=== PATIENT | male | born 1950 ===

== ENCOUNTER 2018-10-16 11:55 | Day surgery (SDC) | payer MEDICARE, BC ==
[~2018-10-16 11:55] MED LIST: ALPR.5; ALPR.5 PO; BACL10; CEFP200 PO; CELE200 PO; CEPH500 PO; CYCL10; Ceftriaxone2 G1 IV; ELIQUIS2.5 MG PO; ESOM20; HYDACE10B; HYDMOR4 PO; LANS30EC; METO100ER PO; METO50 PO; METO50ER PO; MIRT30 PO; MORPHINE; MULVITMINF; ONDA4ODT PO; OXYC10TA19 PO; OXYC30ER PO; OXYC80ER; OXYC80ER PO; Omeprazole20 M1 PO; PENVK500; PRAZ2 PO; PREG75 PO; ROFE25; SUCR1; Synthroid25 MCG PO; TEMA30 PO; TIZA4; TIZA4 PO; WARF5 PO; ZOLP10; ZOLP12.5; [UNRECOGNIZED DRUG - OTHER]
== END 2018-10-16 22:54 | disposition home or self-care (01) ==
LOC: WOUND 11:55
DX: T81.89XA Other complications of procedures, not elsewhere classified, initial encounter (principal); M19.90 Unspecified osteoarthritis, unspecified site; I10 Essential (primary) hypertension; I48.91 Unspecified atrial fibrillation; G89.4 Chronic pain syndrome; D50.9 Iron deficiency anemia, unspecified; M41.9 Scoliosis, unspecified; Z98.84 Bariatric surgery status; Z79.01 Long term (current) use of anticoagulants; Z79.899 Other long term (current) drug therapy
CPT/HCPCS: G0463

== ENCOUNTER 2018-10-23 14:13 | Day surgery (SDC) | payer MEDICARE, BC | END 2018-10-23 22:37 | disposition home or self-care (01) | LOC: WOUND 14:13 | DX: T81.89XA Other complications of procedures, not elsewhere classified, initial encounter (principal); M19.90 Unspecified osteoarthritis, unspecified site ==

== ENCOUNTER 2018-10-25 08:45 | Day surgery (SDC) | payer MEDICARE, BC | END 2018-10-25 22:36 | disposition home or self-care (01) | LOC: WOUND 08:45 | DX: T81.89XA Other complications of procedures, not elsewhere classified, initial encounter (principal); I10 Essential (primary) hypertension; D50.9 Iron deficiency anemia, unspecified; I48.91 Unspecified atrial fibrillation; Z98.84 Bariatric surgery status ==

== ENCOUNTER 2018-10-28 00:15 | Day surgery (SDC) | payer MEDICARE, BC | END 2018-10-28 22:37 | disposition home or self-care (01) | LOC: WOUND 00:15 | DX: T81.89XA Other complications of procedures, not elsewhere classified, initial encounter (principal); I48.91 Unspecified atrial fibrillation; G89.4 Chronic pain syndrome; M41.9 Scoliosis, unspecified; I10 Essential (primary) hypertension; Z98.84 Bariatric surgery status ==

== ENCOUNTER 2018-10-30 14:15 | Day surgery (SDC) | payer MEDICARE, BC | END 2018-10-30 22:42 | disposition home or self-care (01) | LOC: WOUND 14:15 | DX: T85.79XA Infection and inflammatory reaction due to other internal prosthetic devices, implants and grafts, initial encounter (principal); I10 Essential (primary) hypertension; I48.91 Unspecified atrial fibrillation; D50.9 Iron deficiency anemia, unspecified ==

== ENCOUNTER 2018-11-01 14:53 | Day surgery (SDC) | payer MEDICARE, BC | END 2018-11-01 23:02 | disposition home or self-care (01) | LOC: WOUND 14:53 | DX: T81.89XA Other complications of procedures, not elsewhere classified, initial encounter (principal); M19.90 Unspecified osteoarthritis, unspecified site; I48.91 Unspecified atrial fibrillation; G89.4 Chronic pain syndrome; M41.9 Scoliosis, unspecified; D50.9 Iron deficiency anemia, unspecified; I10 Essential (primary) hypertension ==

== ENCOUNTER 2018-11-04 07:43 | Day surgery (SDC) | payer MEDICARE, BC | END 2018-11-04 23:02 | disposition home or self-care (01) | LOC: WOUND 07:43 | DX: T81.89XA Other complications of procedures, not elsewhere classified, initial encounter (principal); I10 Essential (primary) hypertension; I48.91 Unspecified atrial fibrillation; D50.9 Iron deficiency anemia, unspecified; Z98.84 Bariatric surgery status ==

== ENCOUNTER 2018-11-06 14:21 | Day surgery (SDC) | payer MEDICARE, BC | END 2018-11-06 22:39 | disposition home or self-care (01) | LOC: WOUND 14:21 | DX: T81.89XA Other complications of procedures, not elsewhere classified, initial encounter (principal); I48.91 Unspecified atrial fibrillation; M41.9 Scoliosis, unspecified; D50.9 Iron deficiency anemia, unspecified; I10 Essential (primary) hypertension; Z98.84 Bariatric surgery status ==

== ENCOUNTER 2018-11-08 15:04 | Day surgery (SDC) | payer MEDICARE, BC | END 2018-11-08 22:54 | disposition home or self-care (01) | LOC: WOUND 15:04 | DX: T81.89XA Other complications of procedures, not elsewhere classified, initial encounter (principal); S31.109A Unspecified open wound of abdominal wall, unspecified quadrant without penetration into peritoneal cavity, initial encounter; I10 Essential (primary) hypertension; I48.91 Unspecified atrial fibrillation; D50.9 Iron deficiency anemia, unspecified ==

== ENCOUNTER 2018-11-11 07:35 | Day surgery (SDC) | payer MEDICARE, BC | END 2018-11-11 22:38 | disposition home or self-care (01) | LOC: WOUND 07:35 | DX: T81.89XA Other complications of procedures, not elsewhere classified, initial encounter (principal); G89.4 Chronic pain syndrome; M41.9 Scoliosis, unspecified; D50.9 Iron deficiency anemia, unspecified; I10 Essential (primary) hypertension ==

== ENCOUNTER 2018-11-13 14:50 | Day surgery (SDC) | payer MEDICARE, BC ==
--- NOTE | 2018-11-13 16:36 | NUR ---
This student nurse has permission to access patient's information.
== END 2018-11-14 22:39 | disposition home or self-care (01) ==
LOC: WOUND 14:50
DX: T81.89XA Other complications of procedures, not elsewhere classified, initial encounter (principal); S31.109A Unspecified open wound of abdominal wall, unspecified quadrant without penetration into peritoneal cavity, initial encounter; I10 Essential (primary) hypertension; I48.91 Unspecified atrial fibrillation; D50.9 Iron deficiency anemia, unspecified; F41.9 Anxiety disorder, unspecified; Z98.84 Bariatric surgery status

== ENCOUNTER 2018-11-15 15:00 | Day surgery (SDC) | payer MEDICARE, BC | END 2018-11-16 22:39 | disposition home or self-care (01) | LOC: WOUND 15:00 | DX: T81.89XA Other complications of procedures, not elsewhere classified, initial encounter (principal); G89.4 Chronic pain syndrome; M41.9 Scoliosis, unspecified; D50.9 Iron deficiency anemia, unspecified; I10 Essential (primary) hypertension; Z98.84 Bariatric surgery status ==

== ENCOUNTER 2018-11-18 00:13 | Day surgery (SDC) | payer MEDICARE, BC | END 2018-11-18 22:45 | disposition home or self-care (01) | LOC: WOUND 00:13 | DX: T81.89XA Other complications of procedures, not elsewhere classified, initial encounter (principal); I10 Essential (primary) hypertension; I48.91 Unspecified atrial fibrillation; D50.9 Iron deficiency anemia, unspecified; Z98.84 Bariatric surgery status ==

== ENCOUNTER 2018-11-20 00:10 | Day surgery (SDC) | payer MEDICARE, BC | END 2018-11-20 22:39 | disposition home or self-care (01) | LOC: WOUND 00:10 | DX: S31.109A Unspecified open wound of abdominal wall, unspecified quadrant without penetration into peritoneal cavity, initial encounter (principal); I10 Essential (primary) hypertension; I48.91 Unspecified atrial fibrillation; D50.9 Iron deficiency anemia, unspecified; Z98.84 Bariatric surgery status ==

== ENCOUNTER 2018-11-22 00:37 | Day surgery (SDC) | payer MEDICARE, BC | END 2018-11-22 22:45 | disposition home or self-care (01) | LOC: WOUND 00:37 | DX: T81.89XA Other complications of procedures, not elsewhere classified, initial encounter (principal); S31.109A Unspecified open wound of abdominal wall, unspecified quadrant without penetration into peritoneal cavity, initial encounter; I10 Essential (primary) hypertension; I48.91 Unspecified atrial fibrillation; D50.9 Iron deficiency anemia, unspecified; Z98.84 Bariatric surgery status ==

== ENCOUNTER 2018-11-25 08:46 | Day surgery (SDC) | payer MEDICARE, BC | END 2018-11-25 22:36 | disposition home or self-care (01) | LOC: WOUND 08:46 | DX: T81.89XA Other complications of procedures, not elsewhere classified, initial encounter (principal); G89.4 Chronic pain syndrome; M41.9 Scoliosis, unspecified; D50.9 Iron deficiency anemia, unspecified; I10 Essential (primary) hypertension; M19.90 Unspecified osteoarthritis, unspecified site ==

== ENCOUNTER 2018-11-27 15:01 | Day surgery (SDC) | payer MEDICARE, BC | END 2018-11-27 22:42 | disposition home or self-care (01) | LOC: WOUND 15:01 | DX: S31.109A Unspecified open wound of abdominal wall, unspecified quadrant without penetration into peritoneal cavity, initial encounter (principal); I11.0 Hypertensive heart disease with heart failure; I50.9 Heart failure, unspecified; I48.91 Unspecified atrial fibrillation ==

== ENCOUNTER 2018-11-29 14:58 | Day surgery (SDC) | payer MEDICARE, BC | END 2018-11-29 22:42 | disposition home or self-care (01) | LOC: WOUND 14:58 | DX: T81.89XA Other complications of procedures, not elsewhere classified, initial encounter (principal); S31.109A Unspecified open wound of abdominal wall, unspecified quadrant without penetration into peritoneal cavity, initial encounter; I10 Essential (primary) hypertension; I48.91 Unspecified atrial fibrillation; D50.9 Iron deficiency anemia, unspecified ==

== ENCOUNTER 2018-12-02 15:01 | Emergency (ER) | payer MEDICARE, BC ==
[~2018-12-02] VITALS: Ht 165.1 cm; Wt 72.6 kg
== END 2018-12-02 16:17 | disposition home or self-care (01) ==
LOC: ER 15:01
DX: Z48.01 Encounter for change or removal of surgical wound dressing (principal); Z88.8 Allergy status to other drugs, medicaments and biological substances; Z79.899 Other long term (current) drug therapy; Z79.891 Long term (current) use of opiate analgesic; I10 Essential (primary) hypertension; F64.9 Gender identity disorder, unspecified; I48.91 Unspecified atrial fibrillation
CPT/HCPCS: 99282

== ENCOUNTER 2018-12-04 11:22 | Day surgery (SDC) | payer MEDICARE, BC | END 2018-12-04 23:00 | disposition home or self-care (01) | LOC: WOUND 11:22 | DX: S31.109A Unspecified open wound of abdominal wall, unspecified quadrant without penetration into peritoneal cavity, initial encounter (principal); I48.91 Unspecified atrial fibrillation; D50.9 Iron deficiency anemia, unspecified; I10 Essential (primary) hypertension; Z98.84 Bariatric surgery status ==

== ENCOUNTER 2018-12-06 07:44 | Day surgery (SDC) | payer MEDICARE, BC | END 2018-12-06 22:55 | disposition home or self-care (01) | LOC: WOUND 07:44 | DX: T81.89XA Other complications of procedures, not elsewhere classified, initial encounter (principal); S31.109A Unspecified open wound of abdominal wall, unspecified quadrant without penetration into peritoneal cavity, initial encounter; M19.90 Unspecified osteoarthritis, unspecified site ==

== ENCOUNTER 2018-12-09 01:37 | Day surgery (SDC) | payer MEDICARE, BC | END 2018-12-09 22:36 | disposition home or self-care (01) | LOC: WOUND 01:37 | DX: T81.89XA Other complications of procedures, not elsewhere classified, initial encounter (principal); G89.4 Chronic pain syndrome; M41.9 Scoliosis, unspecified; D50.9 Iron deficiency anemia, unspecified; I10 Essential (primary) hypertension; Z98.84 Bariatric surgery status ==

== ENCOUNTER 2018-12-11 00:25 | Day surgery (SDC) | payer MEDICARE, BC | END 2018-12-11 22:44 | disposition home or self-care (01) | LOC: WOUND 00:25 | DX: S31.109A Unspecified open wound of abdominal wall, unspecified quadrant without penetration into peritoneal cavity, initial encounter (principal); I10 Essential (primary) hypertension; I48.91 Unspecified atrial fibrillation; D50.9 Iron deficiency anemia, unspecified; Z98.84 Bariatric surgery status ==

== ENCOUNTER 2018-12-13 10:30 | Day surgery (SDC) | payer MEDICARE, BC | END 2018-12-13 22:44 | disposition home or self-care (01) | LOC: WOUND 10:30 | DX: T81.89XA Other complications of procedures, not elsewhere classified, initial encounter (principal); S31.109A Unspecified open wound of abdominal wall, unspecified quadrant without penetration into peritoneal cavity, initial encounter; F41.9 Anxiety disorder, unspecified | CPT/HCPCS: G0463 ==

== ENCOUNTER 2018-12-16 08:50 | Day surgery (SDC) | payer MEDICARE, BC | END 2018-12-16 22:38 | disposition home or self-care (01) | LOC: WOUND 08:50 | DX: T81.89XA Other complications of procedures, not elsewhere classified, initial encounter (principal); S31.109A Unspecified open wound of abdominal wall, unspecified quadrant without penetration into peritoneal cavity, initial encounter | CPT/HCPCS: G0463 ==

== ENCOUNTER 2018-12-18 07:49 | Day surgery (SDC) | payer MEDICARE, BC | END 2018-12-18 22:55 | disposition home or self-care (01) | LOC: WOUND 07:49 | DX: T81.89XA Other complications of procedures, not elsewhere classified, initial encounter (principal); S31.109A Unspecified open wound of abdominal wall, unspecified quadrant without penetration into peritoneal cavity, initial encounter | CPT/HCPCS: G0463 ==

== ENCOUNTER 2018-12-20 13:40 | Day surgery (SDC) | payer MEDICARE, BC | END 2018-12-20 22:59 | disposition home or self-care (01) | LOC: WOUND 13:40 | DX: T81.89XA Other complications of procedures, not elsewhere classified, initial encounter (principal); S31.109A Unspecified open wound of abdominal wall, unspecified quadrant without penetration into peritoneal cavity, initial encounter; I10 Essential (primary) hypertension; I48.91 Unspecified atrial fibrillation; D50.9 Iron deficiency anemia, unspecified; Z98.84 Bariatric surgery status ==

== ENCOUNTER 2018-12-23 07:45 | Day surgery (SDC) | payer MEDICARE, BC | END 2018-12-23 23:03 | disposition home or self-care (01) | LOC: WOUND 07:45 | DX: T81.89XA Other complications of procedures, not elsewhere classified, initial encounter (principal); M19.90 Unspecified osteoarthritis, unspecified site; G89.4 Chronic pain syndrome; M41.9 Scoliosis, unspecified; I10 Essential (primary) hypertension; Z98.84 Bariatric surgery status ==

== ENCOUNTER 2018-12-25 07:42 | Day surgery (SDC) | payer MEDICARE, BC | END 2018-12-25 22:43 | disposition home or self-care (01) | LOC: WOUND 07:42 | DX: T81.89XA Other complications of procedures, not elsewhere classified, initial encounter (principal); G89.4 Chronic pain syndrome; M41.9 Scoliosis, unspecified; D50.9 Iron deficiency anemia, unspecified; I10 Essential (primary) hypertension; Z98.84 Bariatric surgery status ==

== ENCOUNTER 2018-12-27 16:40 | Day surgery (SDC) | payer MEDICARE, BC | END 2018-12-27 22:39 | disposition home or self-care (01) | LOC: WOUND 16:40 | DX: T81.89XA Other complications of procedures, not elsewhere classified, initial encounter (principal); S31.109A Unspecified open wound of abdominal wall, unspecified quadrant without penetration into peritoneal cavity, initial encounter; I10 Essential (primary) hypertension; I48.91 Unspecified atrial fibrillation; D50.9 Iron deficiency anemia, unspecified; Z98.84 Bariatric surgery status ==

== ENCOUNTER 2018-12-30 11:30 | Day surgery (SDC) | payer MEDICARE, BC | END 2018-12-30 22:37 | disposition home or self-care (01) | LOC: WOUND 11:30 | DX: T81.89XA Other complications of procedures, not elsewhere classified, initial encounter (principal); G89.4 Chronic pain syndrome; M41.9 Scoliosis, unspecified; D50.9 Iron deficiency anemia, unspecified; I10 Essential (primary) hypertension | CPT/HCPCS: G0463 ==

== ENCOUNTER 2019-01-01 07:55 | Day surgery (SDC) | payer MEDICARE, BC | END 2019-01-01 22:58 | disposition home or self-care (01) | LOC: WOUND 07:55 | DX: T81.31XA Disruption of external operation (surgical) wound, not elsewhere classified, initial encounter (principal); S31.109A Unspecified open wound of abdominal wall, unspecified quadrant without penetration into peritoneal cavity, initial encounter; I11.0 Hypertensive heart disease with heart failure; I50.9 Heart failure, unspecified; I48.91 Unspecified atrial fibrillation; M19.90 Unspecified osteoarthritis, unspecified site; Z98.84 Bariatric surgery status | CPT/HCPCS: G0463 ==

== ENCOUNTER 2019-01-03 13:30 | Day surgery (SDC) | payer MEDICARE, BC | END 2019-01-03 22:53 | disposition home or self-care (01) | LOC: WOUND 13:30 | DX: T81.31XA Disruption of external operation (surgical) wound, not elsewhere classified, initial encounter (principal); G89.4 Chronic pain syndrome; M41.9 Scoliosis, unspecified; D50.9 Iron deficiency anemia, unspecified; I10 Essential (primary) hypertension; Z98.84 Bariatric surgery status | CPT/HCPCS: G0463 ==

== ENCOUNTER 2019-01-08 11:31 | Day surgery (SDC) | payer MEDICARE, BC | END 2019-01-08 23:33 | disposition home or self-care (01) | LOC: WOUND 11:31 | DX: T81.31XA Disruption of external operation (surgical) wound, not elsewhere classified, initial encounter (principal); S31.109A Unspecified open wound of abdominal wall, unspecified quadrant without penetration into peritoneal cavity, initial encounter; I10 Essential (primary) hypertension; I48.91 Unspecified atrial fibrillation; D50.9 Iron deficiency anemia, unspecified; Z98.84 Bariatric surgery status ==

== ENCOUNTER 2019-01-13 11:13 | Day surgery (SDC) | payer MEDICARE, BC | END 2019-01-13 22:56 | disposition home or self-care (01) | LOC: WOUND 11:13 | DX: T81.41XA Infection following a procedure, superficial incisional surgical site, initial encounter (principal) | CPT/HCPCS: G0463 ==

== ENCOUNTER 2019-01-17 13:45 | Day surgery (SDC) | payer MEDICARE, BC | END 2019-01-17 23:26 | disposition home or self-care (01) | LOC: WOUND 13:45 | DX: T85.79XA Infection and inflammatory reaction due to other internal prosthetic devices, implants and grafts, initial encounter (principal); I48.91 Unspecified atrial fibrillation; G89.4 Chronic pain syndrome; D50.9 Iron deficiency anemia, unspecified; I10 Essential (primary) hypertension; Z98.890 Other specified postprocedural states; Z98.84 Bariatric surgery status | CPT/HCPCS: G0463 ==

== ENCOUNTER 2019-06-22 07:30 | Emergency (ER) | payer MEDICARE, BC ==
[~2019-06-22] VITALS: Ht 162.6 cm; Wt 83.9 kg
[2019-06-22] MEDS ORDERED: CYANOCOBAL1000 MCG/1 (07:52)
[2019-06-22] MEDS ORDERED: ROXICODONE15 MG PO (07:54)
== END 2019-06-22 09:04 | disposition home or self-care (01) ==
LOC: ER 07:30
DX: S62.524A Nondisplaced fracture of distal phalanx of right thumb, initial encounter for closed fracture (principal); I10 Essential (primary) hypertension; D64.9 Anemia, unspecified; Z79.899 Other long term (current) drug therapy; I48.91 Unspecified atrial fibrillation; M41.9 Scoliosis, unspecified; Z88.8 Allergy status to other drugs, medicaments and biological substances; W01.0XXA Fall on same level from slipping, tripping and stumbling without subsequent striking against object, initial encounter
CPT/HCPCS: 29125; 73130; 99283-25

== ENCOUNTER 2020-09-03 15:45 | Emergency (ER) | payer OTHER, BC, MEDICARE ==
[~2020-09-03] VITALS: Ht 170.2 cm; Wt 86.2 kg
[~2020-09-03 15:45] MED LIST changes: +CYANOCOBAL1000 MCG/1; +ROXICODONE15 MG PO
[2020-09-03] MEDS ORDERED: CODACE30 PO (17:38)
== END 2020-09-03 17:47 | disposition home or self-care (01) ==
LOC: ER 15:45
DX: S63.91XA Sprain of unspecified part of right wrist and hand, initial encounter (principal); I10 Essential (primary) hypertension; I48.91 Unspecified atrial fibrillation; E03.9 Hypothyroidism, unspecified; E11.9 Type 2 diabetes mellitus without complications; Z88.6 Allergy status to analgesic agent; Z79.01 Long term (current) use of anticoagulants; Z79.899 Other long term (current) drug therapy; W18.30XA Fall on same level, unspecified, initial encounter
CPT/HCPCS: 73130; 99283-25

== ENCOUNTER 2021-01-29 06:45 | Emergency (ER) | payer OTHER, BC ==
[~2021-01-29] VITALS: Ht 167.6 cm; Wt 86.2 kg
[~2021-01-29 06:45] MED LIST changes: +CODACE30 PO
[2021-01-29] MEDS ORDERED: FURO20 PO (07:12)
[2021-01-29] MEDS ORDERED: POTCHL20ER PO (07:14)
[2021-01-29] MEDS ORDERED: OXYC30ER PO (07:15)
== END 2021-01-29 07:35 | disposition home or self-care (01) ==
LOC: ER 06:45
DX: M54.5 Low back pain (principal); G89.29 Other chronic pain; I10 Essential (primary) hypertension; I48.91 Unspecified atrial fibrillation; E11.9 Type 2 diabetes mellitus without complications; E03.9 Hypothyroidism, unspecified; Z79.01 Long term (current) use of anticoagulants; Z88.6 Allergy status to analgesic agent; Z79.899 Other long term (current) drug therapy
CPT/HCPCS: 99281

== ENCOUNTER 2021-12-16 08:37 | Emergency (ER) | payer MEDICARE, BC ==
[~2021-12-16] VITALS: Ht 165.1 cm; Wt 86.2 kg
[~2021-12-16 08:37] MED LIST changes: +FURO20 PO; +POTCHL20ER PO
[2021-12-16 10:46] LABS: Bun/Creatinine Ratio 18.8 (12.0-20.0); Creatinine, Blood 1.12 mg/dL (0.60-1.20); Magnesium, Blood 1.9 mg/dL (1.6-2.4); Potassium, Blood 3.7 mmol/L (3.5-5.5)
== END 2021-12-16 11:38 | disposition home or self-care (01) ==
LOC: ER 08:37
PROVIDERS: Emergency Medicine
DX: R79.89 Other specified abnormal findings of blood chemistry (principal); I10 Essential (primary) hypertension; I48.91 Unspecified atrial fibrillation; E03.9 Hypothyroidism, unspecified; E11.9 Type 2 diabetes mellitus without complications
CPT/HCPCS: 36415; 80048; 83735; 99284

== ENCOUNTER → 2022-10-24 | Outpatient (CLI) | payer MEDICARE ==
[2022-10-24 19:55] LABS: BASOPHILS ABSOLUTE AUTO 0.01 K/mm3 (0.00-0.23); BASOPHILS PERCENT AUTO 0 % (0-2); EOSINOPHILS ABSOLUTE AUTO 0.02 K/mm3 (0.00-0.68); EOSINOPHILS PERCENT AUTO 0 % (0-6); Hematocrit 33.3 % (37.0-53.0); Hemoglobin 11.2 g/dL (13.5-17.5); IMMATURE GRAN ABSOLUTE AUTO 0.07 K/mm3 (0.00-0.10); IMMATURE GRAN PERCENT AUTO 1 % (0-1); LYMPHOCYTES ABSOLUTE AUTO 0.92 K/mm3 (0.84-5.20); LYMPHOCYTES PERCENT AUTO 16 % (21-46); MONOCYTES ABSOLUTE AUTO 0.51 K/mm3 (0.16-1.47); MONOCYTES PERCENT AUTO 9 % (4-13); Mean Corpuscular HGB 36.1 pg (26.0-34.0); Mean Corpuscular HGB Conc 33.6 g/dL (31.5-36.5); Mean Corpuscular Volume 107 fL (80-100); Mean Platelet Volume 11.5 fL (9.1-12.4); NEUTROPHILS ABSOLUTE AUTO 4.18 K/mm3 (1.96-9.15); NEUTROPHILS PERCENT AUTO 73 % (41-73); NRBC ABSOLUTE 0.12 K/mm3 (0.00-0.02); NRBC Auto 2.1 /100 WBC (0.0-0.2); Platelet Count 164 K/mm3 (150-400); RDW Coefficient Variation 17.8 % (11.7-14.2); RDW Standard Deviation 70.5 fL (35.1-46.3); White Blood Cell Count 5.71 K/mm3 (4.00-11.30)
[2022-10-24 20:13] LABS: Albumin, Blood 2.7 g/dL (3.4-5.0); Albumin/Globulin Ratio 0.8 (0.8-1.8); Bilirubin, Direct 6.6 mg/dL (0.0-0.3); Bilirubin, Indirect 2.2 mg/dL (0.1-0.7); Bilirubin, Total 8.8 mg/dL (0.1-1.0); Bun/Creatinine Ratio 26.6 (12.0-20.0); Calcium, Blood 8.5 mg/dL (8.5-10.1); Creatinine, Blood 1.24 mg/dL (0.60-1.20); Globulin, Blood 3.5 g/dL (2.2-4.0); Potassium, Blood 3.1 mmol/L (3.5-5.5); Total Protein, Blood 6.2 g/dL (6.4-8.2)
[2022-10-25 21:38] LABS: Carcinoembryonic Antigen 6.9 ng/mL (0.0-3.0)
[2022-10-25 21:40] LABS: Cancer Antigen 19-9 2556.2 U/mL (2.0-37.0)
== END | disposition home or self-care (01) ==
LOC: LAB SHORT 16:40 → LAB 16:40
PROVIDERS: Internal Medicine
DX: C43.9 Malignant melanoma of skin, unspecified (principal); C26.0 Malignant neoplasm of intestinal tract, part unspecified; C25.9 Malignant neoplasm of pancreas, unspecified; R17 Unspecified jaundice; R74.02 Elevation of levels of lactic acid dehydrogenase [LDH]; R74.01 Elevation of levels of liver transaminase levels
CPT/HCPCS: 80053; 82247; 82248; 82378; 83615; 85025; 86301